=== PATIENT | male | born 1970 | race Caucasian/White ===

== ENCOUNTER 2018-03-01 09:04 | Emergency (ER) | payer SELFPAY ==
[2018-03-01] MEDS ORDERED: Ondansetron HCl/PF 4 MG/2 ML Vial ONE (09:38)
[2018-03-01] MEDS ORDERED: Ketorolac Tromethamine 30 MG/ML VIAL ONE (09:38)
[2018-03-01] MEDS ORDERED: Sodium Chloride 0.9% 1,000 ML ONE (09:38)
[2018-03-01 09:58] LABS: #Basophils 0.1 thou/uL (0.0-0.2); #Eosinphils 0.1 thou/uL (0.0-0.7); #Lymphocytes 2.7 thou/uL (1.20-3.40); #Monocytes 0.8 thou/uL (0.11-0.59); #Neutrophils 8.1 thou/uL (1.40-6.50); %Basophils 0.9 % (0.0-1.0); %Eosinophils 1.2 % (0.0-10.0); %Monocytes 6.7 % (0.0-10.0); %Neutrophils 68.2 % (42.0-75.0); Hemoglobin 16.2 g/dL (14.0-18.0); Mean Corpuscular HGB CONC 33.4 g/dL (32.0-36.0); Mean Corpuscular Volume 89.9 fL (78.0-98.0); Mean Platelet Volume 7.1 fL (7.4-10.4); Platelet Count 308 thou/uL (130-400); RBC Distribution Width 11.1 % (11.5-14.5); Red Blood Cell (RBC) Count 5.41 mill/uL (4.70-6.10); White Blood Cell (WBC) Count 11.9 thou/uL (4.8-10.8)
[2018-03-01 10:01] LABS: Clarity Clear (Clear)
[2018-03-01 10:02] LABS: Specific Gravity, Urine 1.029 (1.002-1.036)
[2018-03-01 10:03] LABS: Bacteria/HPF None Seen HPF (None Seen); RBC/HPF 0-3 HPF (0-3); Squamous Epithelial None Seen HPF (0-3); WBC/HPF 0-3 HPF (0-3)
[2018-03-01 10:08] LABS: ALT (SGPT) 11 U/L (8-55); AST (SGOT) 17 U/L (5-34); Albumin 4.1 g/dL (3.5-5.0); Alkaline Phosphatase 63 U/L (40-150); Anion Gap 13 mmol/L (10-20); BUN (Urea Nitrogen) 12 mg/dL (8.9-20.6); Bilirubin, Total 1.3 mg/dL (0.2-1.2); Calc. Creatinine Clearance 0 mL/min (70-130); Calcium 9.6 mg/dL (7.8-10.44); Carbon Dioxide 21 mmol/L (22-29); Chloride 105 mmol/L (98-107); Estimated GFR-MDRD 50; Globulin 2.9 g/dL (2.4-3.5); Glucose 112 mg/dL (70-105); Potassium 3.4 mmol/L (3.5-5.1); Sodium 136 mmol/L (136-145)
--- NOTE | 2018-03-01 10:27 | CT ---
CT ABDOMEN AND PELVIS NONCONTRAST: HISTORY: Left flank pain. FINDINGS: There is moderate distention of the left renal collecting system and ureter to the level of a proxima l left ureteral calculus that measures up to 1.4 cm length x 1.0 cm greatest width. The left ureter beyond this point as well as the right renal collecting system, ureter, and urinary bladder are decom pressed without additional stone apparent. Two stones at the inferior pole of the left kidney are pr esent, measuring up to 0.6 cm. Lack of contrast limits evaluation for other abnormalities. Scattered diverticula arise from the col on without adjacent inflammation. IMPRESSION: 1. Partial obstruction as a 1.4 cm proximal left ureteral calculus. Additional nonobstructing left renal calculi. 2. Diverticulosis. No evidence of diverticulitis. POS: [id number]
== END 2018-03-01 12:05 | disposition home or self-care (01) ==
LOC: NAV ERS 09:04
DX: N13.2 Hydronephrosis with renal and ureteral calculous obstruction (principal); F17.210 Nicotine dependence, cigarettes, uncomplicated
CPT/HCPCS: 74176; 80053; 81003; 81015; 85025; 96361; 96374; 96375; J1170; J1885; J2270; J2405; J7050